=== PATIENT | male | born 1965 | race Caucasian/White ===

== ENCOUNTER 2017-05-12 11:39 | Outpatient (CLI) | payer OTHER ==
[2015-01-31 11:29] VITALS: O2SAT 97
== END 2017-05-12 11:40 | disposition home or self-care (01) | DRG 558 ==
LOC: CONVCARE 11:39
PROVIDERS: ATTEND Orthopaedic Surgery
DX: M75.102 Unspecified rotator cuff tear or rupture of left shoulder, not specified as traumatic (principal); M25.512 Pain in left shoulder
CPT/HCPCS: 73030

== ENCOUNTER 2017-06-04 13:34 | Day surgery (SDC) | payer OTHER ==
[2017-06-04 13:55] VITALS: TEMP 97.2; O2SAT 94
[2017-06-04] MEDS ORDERED: DEXAMETHASONE SOD PHOS PF 10 MG/ML SOL IJ ONE (14:44)
[2017-06-04] MEDS ORDERED: BUPIVACAINE HCL 0.25% MPF 10 ML SOL INFIL ONE (14:45)
[2017-06-04 15:08] VITALS: BP 91/60; PULSE 76; RESP 18
== END 2017-06-04 15:30 | disposition home or self-care (01) | DRG 552 ==
LOC: SURG 13:34
PROVIDERS: ATTEND Nurse Anesthetist, Certified Registered
DX: M54.5 Low back pain (principal); M54.16 Radiculopathy, lumbar region
CPT/HCPCS: J1100

== ENCOUNTER 2017-07-09 08:26 | Emergency (ER) | payer OTHER ==
[2017-07-09 08:43] VITALS: TEMP 97.1
[2017-07-09 09:19] VITALS: RESP 20
[2017-07-09 09:24] LABS: BASOPHILS % (AUTO) 1 % (0-3); EOSINOPHILS % (AUTO) 4 % (0-9); HEMATOCRIT 45 % (39-53); MEAN CORPUSCULAR HGB CONC 33.8 gm/dl (32.0-36.0); MEAN CORPUSCULAR VOLUME 87 fL (80-100); MONOCYTES % (AUTO) 9.3 % (0-12); NEUTROPHILS % (AUTO) 72.7 % (37-80)
[2017-07-09 09:50] VITALS: BP 153/86; PULSE 80; O2SAT 94
[2017-07-09 09:54] LABS: ALBUMIN 3.9 gm/dl (3.4-5.0); ALT 29 IU/L (14-63); CALCIUM 9.2 mg/dl (8.5-10.1); GLOM FILT RATE 58 mL/min (>60); POTASSIUM 4.4 mMol/L (3.5-5.1); SODIUM 139 mMol/L (136-145)
== END 2017-07-09 10:10 | disposition home or self-care (01) | DRG 204 ==
LOC: ED 08:26
DX: R05 Cough (principal); R06.02 Shortness of breath; R42 Dizziness and giddiness; Z87.09 Personal history of other diseases of the respiratory system; R07.89 Other chest pain
CPT/HCPCS: 36415; 80053; 84484; 85025; 93005; 99283

== ENCOUNTER → 2018-01-08 | Day surgery (SDC) | payer OTHER ==
[~2018-01-08] MED LIST: BUPIVACAINE HCL 0.25% MPF 30 ML SOL INFIL ONE; DEXAMETHASONE SOD PHOS PF 10 MG/ML SOL IJ ONE; EPHEDRINE SULFATE 50 MG/ML SOL IV ONE; GLYCOPYRROLATE 0.2 MG/ML SOL IV ONE; SODIUM CHLORIDE 0.9% FLUSH 10 ML SOL IV ONE
[2018-01-08 12:48] VITALS: RESP 16
[2018-01-08 15:40] VITALS: BP 132/90; PULSE 76; TEMP 96.9; O2SAT 96
== END | disposition home or self-care (01) | DRG 552 ==
LOC: SURG 12:27
PROVIDERS: ATTEND Nurse Anesthetist, Certified Registered
DX: M51.17 Intervertebral disc disorders with radiculopathy, lumbosacral region (principal)
CPT/HCPCS: J7643; J1100; J3490